=== PATIENT | female | born 1945 | race Caucasian/White ===

== ENCOUNTER 2017-10-16 18:21 | Observation (INO) | payer MEDICARE, MEDICAID ==
[~2017-10-16] VITALS: Ht 157.5 cm; Wt 60.0 kg
[2017-10-16 19:00] VITALS: BP 170/86; PULSE 80; RESP 16; TEMP 99.2; O2SAT 96
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
[2017-10-16] MEDS ORDERED: SODIUM CHLORIDE 0.9% FLUSH 10 ML FLUSH IVF PRN (22:15)
[2017-10-16] MEDS ORDERED: LORazepam 2 MG/ML VIAL IM ONE (22:30)
[2017-10-16 22:59] VITALS: RESP 19; O2SAT 99
[2017-10-16 23:00] VITALS: BP 155/79; PULSE 69; RESP 16; O2SAT 97
[2017-10-16 23:06] LABS: AUTOMATED NEUTROPHIL # 7.6 TH/MM3 (1.8-7.7); BASOPHIL # 0.1 TH/MM3 (0-0.2); BASOPHIL % 0.5 % (0.0-2.0); EOSINOPHIL # 0.2 TH/MM3 (0-0.4); EOSINOPHIL % 1.6 % (0.0-4.0); HEMATOCRIT 29.9 % (35.0-46.0); HEMOGLOBIN 10.3 GM/DL (11.6-15.3); LYMPH % 16.9 % (9.0-44.0); LYMPHOCYTE # 1.8 TH/MM3 (1.0-4.8); MEAN CELL VOLUME 101.5 FL (80.0-100.0); MEAN CORPUSCULAR HEMOGLOBIN 34.8 PG (27.0-34.0); MEAN CORPUSCULAR HGB CONC 34.3 % (32.0-36.0); MEAN PLATELET VOLUME 7.1 FL (7.0-11.0); MONOCYTE # 1.2 TH/MM3 (0-0.9); PLATELET COUNT 296 TH/MM3 (150-450); RED BLOOD COUNT 2.95 MIL/MM3 (4.00-5.30); RED CELL DISTRIBUTION WIDTH 16.5 % (11.6-17.2); WHITE BLOOD COUNT 10.9 TH/MM3 (4.0-11.0)
[2017-10-16 23:29] LABS: ALBUMIN 2.9 GM/DL (3.4-5.0); ALT (GPT) 28 U/L (10-53); AST (GOT) 21 U/L (15-37); BICARBONATE 27.5 MEQ/L (21.0-32.0); BLOOD UREA NITROGEN 40 MG/DL (7-18); CALCIUM 8.4 MG/DL (8.5-10.1); CHLORIDE 105 MEQ/L (98-107); CREATININE 1.88 MG/DL (0.50-1.00); GLOMERULAR FILTRATION RATE 26 ML/MIN (>89); GLUCOSE,RANDOM 284 MG/DL (74-106); SODIUM (NA) 137 MEQ/L (136-145)
[2017-10-16 23:31] LABS: ALKALINE PHOSPHATASE 129 U/L (45-117); TOTAL BILIRUBIN ADULT 0.2 MG/DL (0.2-1.0); TOTAL PROTEIN 6.5 GM/DL (6.4-8.2)
[2017-10-16] MEDS ORDERED: INSULIN HUMAN REGULAR 1,000 UNITS/10 ML VIAL SQ ONE (23:45)
[2017-10-17] VITALS (13 sets, daily range): BP systolic 148–233; BP diastolic 65–96; PULSE 62–69; RESP 16–18; TEMP 96.6–98.2; O2SAT 87–94
[2017-10-17 00:30] LABS: AMORPHOUS SEDIMENT, URINE RARE; BACTERIA, URINE MANY /hpf; BILIRUBIN, URINE NEG (NEG); BLOOD, URINE SMALL (NEG); GLUCOSE,URINE 300 mg/dL (NEG); KETONE, URINE NEG (NEG); NITRITE,URINE NEG (NEG); PH, URINE 5.5 (5.0-8.5); SQUAMOUS EPITHELIAL CELL URINE 97 /hpf (0-5); URINE COLOR LIGHT-YELLOW (YELLW/STRAW); URINE LEUKOCYTE ESTERASE LARGE (NEG); WHITE BLOOD CELL CLUMPS MANY
[2017-10-17] MEDS ORDERED: cefTRIAXone INJ 1,000 MG in SODIUM CHLORIDE 0.9% INJ 100 ML IV ONE (00:45)
[2017-10-17] MEDS ORDERED: NALOXONE HCL 0.4 MG/ML AMP IV PUSH PRN (01:00)
[2017-10-17] MEDS ORDERED: SODIUM CHLORIDE 0.9% FLUSH 10 ML FLUSH IV FLUSH PRN (01:00)
--- NOTE | 2017-10-17 02:07 | RADRPT ---
EXAM DATE/TIME: 10/17/2017 01:43 [place] COMPARISON: No previous studies available for comparison. INDICATIONS : Altered mental status. RADIATION DOSE: 56.35 CTDIvol (mGy) MEDICAL HISTORY : Non-responsive. SURGICAL HISTORY : Non-responsive. ENCOUNTER: Initial ACUITY: 1 day PAIN SCALE: Non-responsive LOCATION: cranial TECHNIQUE: Multiple contiguous axial images were obtained of the head. Using automated exposure control and adj ustment of the mA and/or kV according to patient size, radiation dose was kept as low as reasonably a chievable to obtain optimal diagnostic quality images. DICOM format image data is available electro nically for review and comparison. FINDINGS: CEREBRUM: The ventricles are normal for age. There is bilateral cortical atrophy and chronic white matter reza es bilaterally. No evidence of midline shift, mass lesion, hemorrhage or acute infarction. No extra- axial fluid collections are seen. POSTERIOR FOSSA: The cerebellum and brainstem are intact. The 4th ventricle is midline. The cerebellopontine angle i s unremarkable. EXTRACRANIAL: The visualized portion of the orbits is intact. SKULL: The calvaria is intact. No evidence of skull fracture. CONCLUSION: 1. No acute intracranial hemorrhage. 2. Bilateral cortical atrophy and chronic bilateral white matter changes. Fernando Rubi MD on October 17, 2017 at 2:04 Board Certified Radiologist. This report was verified electronically.
--- NOTE | 2017-10-17 07:49 | HHI.HP ---
[facility] Duran Rodrigues MD Admission Diagnosis AMS, UTI, Hyperglycemia Diagnoses: Chief Complaint: refusing insulin, agitation Travel History International Travel<30 Days: No Contact w/Intl Traveler <30 Da: No Traveled to Known Affected Are: No History of Present Illness Written by Vaishali Younger, acting as scribe for Dr. Hlae on 10/17/17 at 07: 48. 72-year-old female with history of diabetes and hypertension presents after being sent from [facility] under [facility] Act secondary to refusing insulin and becoming aggressive with staff. The patient is currently seen in the ED, slightly sedated after receiving IM Ativan last night. She is drowsy but oriented to person and hospital. She is unclear of the events leading up to her admission last night. She then admits that the facility was claiming that she was refusing her insulin however she denies this. Reports indicate that her blood glucose was 423 and she continued to refuse treatment. ER note also reports that the patient was aggressive with staff. She currently denies any medical complaints including no fevers/chills, headache, lightheadedness, dizziness, chest pain, shortness of breath, or abdominal complaints. She also denies any urinary complaints including no dysuria or suprapubic pain. Review of Systems Except as stated in HPI: all other systems reviewed are Neg Past Family Social History Past Medical History Diabetes Hypertension Past Surgical History Hysterectomy Tonsillectomy Reported Medications Unknown at this time, RN to update med list Allergies: Coded Allergies: No Allergy Information Available (Unverified , 10/16/17) Active Ordered Medications Current Medications Medications (Trade) Dose Ordered Sig/Gómez Route Start Time Stop Time Status Last Admin (NS Flush) 2 ml UNSCH PRN IV FLUSH 10/17/17 01:00 (NS Flush) 2 ml BID IV FLUSH 10/17/17 09:00 (Narcan Inj) 0.4 mg UNSCH PRN IV PUSH 10/17/17 01:00 Ceftriaxone Sodium 1000 mg/ Sodium Chloride 100 ml @ 200 mls/hr Q24H IV 10/18/17 01:00 Family History Denies any significant family medical history Social History Smokes tobacco 1/2 PPD Denies any alcohol or illicit drug use Physical Exam Vital Signs Vital Signs Date Time Temp Pulse Resp B/P (MAP) Pulse Ox O2 Delivery O2 Flow Rate FiO2 10/17/17 03:00 66 16 148/74 (98) 94 Room Air 10/16/17 23:00 69 16 155/79 (104) 97 Room Air 10/16/17 22:59 19 99 Room Air 10/16/17 19:00 99.2 80 16 170/86 (114) 96 Room Air Physical Exam GENERAL: Well-nourished, well-developed elderly female patient in NAD. Drowsy. SKIN: Warm and dry. No rash. HEAD: Normocephalic. Atraumatic. EYES: Pupils equal and round. No scleral icterus. No injection or drainage. ENT: No nasal bleeding or discharge. Mucous membranes slightly dry. NECK: Supple. Trachea midline. CARDIOVASCULAR: Regular rate and rhythm. S1, S2 noted. No murmur appreciated. RESPIRATORY: No accessory muscle use. Clear to auscultation. Breath sounds equal bilaterally. GASTROINTESTINAL: Abdomen soft, non-tender, nondistended. Normoactive bowel sounds x4. MUSCULOSKELETAL: No obvious deformities. Extremities without clubbing, cyanosis , or edema. NEUROLOGICAL: Awake and alert. No obvious cranial nerve deficits. Motor grossly within normal limits. Moves all extremities spontaneously. Normal speech. Laboratory Laboratory Tests Test 10/16/17 22:55 10/17/17 00:05 White Blood Count 10.9 Red Blood Count 2.95 Hemoglobin 10.3 Hematocrit 29.9 Mean Corpuscular Volume 101.5 Mean Corpuscular Hemoglobin 34.8 Mean Corpuscular Hemoglobin Concent 34.3 Red Cell Distribution Width 16.5 Platelet Count 296 Mean Platelet Volume 7.1 Neutrophils (%) (Auto) 70.0 Lymphocytes (%) (Auto) 16.9 Monocytes (%) (Auto) 11.0 Eosinophils (%) (Auto) 1.6 Basophils (%) (Auto) 0.5 Neutrophils # (Auto) 7.6 Lymphocytes # (Auto) 1.8 Monocytes # (Auto) 1.2 Eosinophils # (Auto) 0.2 Basophils # (Auto) 0.1 CBC Comment DIFF FINAL Differential Comment Blood Urea Nitrogen 40 Creatinine 1.88 Random Glucose 284 Total Protein 6.5 Albumin 2.9 Calcium Level 8.4 Alkaline Phosphatase 129 Aspartate Amino Transf (AST/SGOT) 21 Alanine Aminotransferase (ALT/SGPT) 28 Total Bilirubin 0.2 Sodium Level 137 Potassium Level 4.6 Chloride Level 105 Carbon Dioxide Level 27.5 Anion Gap 5 Estimat Glomerular Filtration Rate 26 B-Hydroxybutyrate 0.32 Urine Color LIGHT-YELLOW Urine Turbidity CLOUDY Urine pH 5.5 Urine Specific [place] 1.016 Urine Protein 300 Urine Glucose (UA) 300 Urine Ketones NEG Urine Occult Blood SMALL Urine Nitrite NEG Urine Bilirubin NEG Urine Urobilinogen LESS THAN 2.0 Urine Leukocyte Esterase LARGE Urine RBC 4 Urine WBC Urine WBC Clumps MANY Urine Squamous Epithelial Cells 97 Urine Amorphous Sediment RARE Urine Bacteria MANY Microscopic Urinalysis Comment CATH-CULTURE IND Date/Time Source Procedure Growth Status 10/17/17 00:05 Urine Catheterized Urine Urine Culture Pending Received Result Diagram: 10/16/17 2255 10/16/17 2255 Imaging Last Impressions Head CT 10/17/17 0000 Signed Impressions: Service Date/Time: Tuesday, October 17, 2017 01:43 - CONCLUSION: 1. No acute intracranial hemorrhage. 2. Bilateral cortical atrophy and chronic bilateral white matter changes. Fernando Rubi MD Caprini VTE Risk Assessment Caprini VTE Risk Assessment: Mod/High Risk (score >= 2) Caprini Risk Assessment Model Point Value = 1 Point Value = 2 Point Value = 3 Point Value = 5 Age 41-60 Minor surgery BMI > 25 kg/m2 Swollen legs Varicose veins or History of unexplained or recurrent spontaneous Oral contraceptives or hormone replacement Sepsis (< 1 month) Serious lung disease, including pneumonia (< 1 month) Abnormal pulmonary function Acute myocardial infarction Congestive heart failure (< 1 month) History of inflammatory bowel disease Medical patient at bed rest Age 61-74 Arthroscopic surgery Major open surgery (> 45 min) Laparoscopic surgery (> 45 min) Malignancy Confined to bed (> 72 hours) Immobilizing plaster cast Central venous access Age >= 75 History of VTE Family history of VTE Factor V Leiden Prothrombin [id number] Lupus anticoagulant Anticardiolipin antibodies Elevated serum homocysteine Heparin-induced thrombocytopenia Other congenital or acquired thrombophilia Stroke (< 1 month) Elective arthroplasty Hip, pelvis, or leg fracture Acute spinal cord injury (< 1 month) Prophylaxis Regimen Total Risk Factor Score Risk Level Prophylaxis Regimen 0-1 Low Early ambulation 2 Moderate Order ONE of the following: *Sequential Compression Device (SCD) *Heparin 5000 units SQ BID 3-4 Higher Order ONE of the following medications: *Heparin 5000 units SQ TID *Enoxaparin/Lovenox 40 mg SQ daily (WT < 150 kg, CrCl > 30 mL/min) *Enoxaparin/Lovenox 30 mg SQ daily (WT < 150 kg, CrCl > 10-29 mL/min) *Enoxaparin/Lovenox 30 mg SQ BID (WT < 150 kg, CrCl > 30 mL/min) AND/OR *Sequential Compression Device (SCD) 5 or more Highest Order ONE of the following medications: *Heparin 5000 units SQ TID (Preferred with Epidurals) *Enoxaparin/Lovenox 40 mg SQ daily (WT < 150 kg, CrCl > 30 mL/min) *Enoxaparin/Lovenox 30 mg SQ daily (WT < 150 kg, CrCl > 10-29 mL/min) *Enoxaparin/Lovenox 30 mg SQ BID (WT < 150 kg, CrCl > 30 mL/min) AND *Sequential Compression Device (SCD) Assessment and Plan Problem List: (1) Altered mental status ICD Code: R41.82 - Altered mental status, unspecified Status: Acute (2) UTI (urinary tract infection) ICD Code: N39.0 - Urinary tract infection, site not specified Status: Acute (3) Hyperglycemia ICD Code: R73.9 - Hyperglycemia, unspecified Status: Acute Assessment and Plan 72-year-old female with history of diabetes and hypertension presents after being sent from [facility] under [employer] Act secondary to refusing insulin and becoming aggressive with staff. Encephalopathy with Agitation/Refusing Meds: sent under [facility] Act from SNF. Possibly secondary to UTI vs hyperglycemia. -Head CT images reviewed, no acute findings -treat UTI -control blood sugars -consult psychiatry UTI: suspect contributing to above symptoms. UA with large leuks, many WBCs/ bacteria. -Continue on IV Rocephin -Monitor urine culture SCOTT: suspect secondary to dehydration. Cr 1.88, previously 1.3 in 2008. -give IVF with NS at 75cc/hr -avoid nephrotoxins -repeat BMP in am Diabetes Mellitus: BG 284 upon arrival -RN to update home medications -Monitor Accu-checks and cover with SSI for now -Diabetic diet Hypertension: BP 170/86 upon arrival. -will restart home meds once med list updated -Clonidine prn SBP > 180 -Monitor BP, add antihypertensives as needed DVT Prophylaxis: Heparin sq the above note was scribed by Ms. Vaishali Younger ( ALISHA). I attest that I had a [id number] encounter with the patient and personally performed the history and physical exam and medical decision making and reviewed the findings and the plan with the patient. Problem Qualifiers (1) Altered mental status: Qualified Codes: R41.82 - Altered mental status, unspecified (2) UTI (urinary tract infection): Qualified Codes: N39.0 - Urinary tract infection, site not specified; R31.9 - Hematuria, unspecified Vaishali Younger PA-C Oct 17, 2017 07:49 Veronica Hale MD Oct 17, 2017 10:02
[2017-10-17] MEDS ORDERED: DEXTROSE 50% IN WATER 50 ML VIAL(D50) IV PUSH PRN (08:45)
[2017-10-17] MEDS ORDERED: GLUCAGON 1 MG/ML VIAL OTHER PRN (08:45)
[2017-10-17] MEDS: SODIUM CHLORIDE 0.9% FLUSH 10 ML FLUSH IV FLUSH SCH ×2 (09:00→21:00)
[2017-10-17] MEDS: SODIUM CHLOR 0.9% 1000 ML INJ 1,000 ML IV SCH ×2 (09:44→21:20)
[2017-10-17] MEDS: cloNIDine HCL 0.1 MG TAB PO PRN ×2 (11:54→17:23)
[2017-10-17] MEDS: INSULIN ASPART SUPPLEMENTAL SCALE SQ SCH ×3 (12:01→23:44)
[2017-10-17] MEDS ORDERED: FERR325T18 PO (12:14)
[2017-10-17] MEDS ORDERED: MAPA325T PO (12:14)
[2017-10-17] MEDS ORDERED: LISI-515 PO (12:14)
[2017-10-17] MEDS ORDERED: CELE40TA PO (12:14)
[2017-10-17] MEDS ORDERED: OXYB5TAB8 PO (12:14)
[2017-10-17] MEDS ORDERED: ASPI81TA23 PO (12:14)
[2017-10-17] MEDS ORDERED: HYDR1OIN6 (12:14)
[2017-10-17] MEDS ORDERED: CLOP75TA PO (12:14)
[2017-10-17] MEDS ORDERED: NOVOINJ3 SQ (12:14)
[2017-10-17] MEDS ORDERED: ROSU1TAB6 PO (12:14)
[2017-10-17] MEDS ORDERED: PRED1 PO (12:14)
[2017-10-17] MEDS ORDERED: OXCA150T PO (12:14)
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
[2017-10-17] MEDS: LISINOPRIL 20 MG TAB PO SCH (14:45)
[2017-10-17] MEDS: OXYBUTYNIN CHLORIDE 5 MG TAB PO SCH (22:59)
[2017-10-17] MEDS: HEPARIN SODIUM - SQ 10,000 UNITS/ML VIAL SQ SCH (23:00)
[2017-10-17] MEDS: ATORVASTATIN 20 MG TAB PO SCH (23:00)
[2017-10-17] MEDS: OXcarbazepine 150 MG TAB PO SCH (23:00)
[2017-10-18] MEDS: cefTRIAXone INJ 1,000 MG in SODIUM CHLORIDE 0.9% INJ 100 ML IV SCH (01:58)
[2017-10-18 02:59] VITALS: BP 186/79; PULSE 55; RESP 17; TEMP 98.2; O2SAT 93
[2017-10-18 07:15] LABS: AUTOMATED NEUTROPHIL # 6.9 TH/MM3 (1.8-7.7); BASOPHIL # 0.1 TH/MM3 (0-0.2); BASOPHIL % 1.1 % (0.0-2.0); EOSINOPHIL # 0.2 TH/MM3 (0-0.4); EOSINOPHIL % 2.2 % (0.0-4.0); HEMOGLOBIN 9.6 GM/DL (11.6-15.3); LYMPH % 21.5 % (9.0-44.0); LYMPHOCYTE # 2.4 TH/MM3 (1.0-4.8); MEAN CELL VOLUME 101.3 FL (80.0-100.0); MEAN CORPUSCULAR HEMOGLOBIN 34.9 PG (27.0-34.0); MEAN CORPUSCULAR HGB CONC 34.4 % (32.0-36.0); MEAN PLATELET VOLUME 7.3 FL (7.0-11.0); MONO % 12.4 % (0.0-8.0); MONOCYTE # 1.4 TH/MM3 (0-0.9); NEUT % 62.8 % (16.0-70.0); PLATELET COUNT 264 TH/MM3 (150-450); RED BLOOD COUNT 2.77 MIL/MM3 (4.00-5.30); RED CELL DISTRIBUTION WIDTH 16.9 % (11.6-17.2)
[2017-10-18 07:44] LABS: BICARBONATE 23.3 MEQ/L (21.0-32.0); CALCIUM 8.1 MG/DL (8.5-10.1); CREATININE 1.64 MG/DL (0.50-1.00)
[2017-10-18 08:07] VITALS: BP 205/84; PULSE 61; RESP 22; TEMP 97.6; O2SAT 95
[2017-10-18] MEDS: FERROUS SULFATE 325 MG (65 MG ELEMENTAL IRON) TAB PO SCH (08:55)
[2017-10-18] MEDS: HEPARIN SODIUM - SQ 10,000 UNITS/ML VIAL SQ SCH ×2 (08:55→23:07)
[2017-10-18] MEDS: ASPIRIN EC 81 MG TABEC PO SCH (08:56)
[2017-10-18] MEDS: LISINOPRIL 20 MG TAB PO SCH (08:56)
[2017-10-18] MEDS: CLOPIDOGREL 75 MG TAB PO SCH (08:57)
[2017-10-18] MEDS: OXcarbazepine 150 MG TAB PO SCH ×2 (08:57→23:06)
[2017-10-18] MEDS: OXYBUTYNIN CHLORIDE 5 MG TAB PO SCH ×2 (08:57→23:06)
[2017-10-18] MEDS: predniSONE 1 MG TAB PO SCH (08:58)
[2017-10-18] MEDS: SODIUM CHLORIDE 0.9% FLUSH 10 ML FLUSH IV FLUSH SCH ×2 (08:58→23:07)
[2017-10-18] MEDS: INSULIN ASPART SUPPLEMENTAL SCALE SQ SCH ×4 (10:32→23:07)
[2017-10-18] MEDS: ACETAMINOPHEN 325 MG TAB PO PRN (10:34)
[2017-10-18 12:10] VITALS: BP 188/82; PULSE 66; RESP 22; TEMP 98.2; O2SAT 92
--- NOTE | 2017-10-18 12:28 | HHI.PR ---
Subjective Remarks in no acute distress. denies chest pain or sob. BP and blood sugar trend noted. Objective Vitals Vital Signs Date Time Temp Pulse Resp B/P (MAP) Pulse Ox O2 Delivery O2 Flow Rate FiO2 10/18/17 12:10 98.2 66 22 188/82 (117) 92 10/18/17 08:07 97.6 61 22 205/84 (124) 95 10/18/17 02:59 98.2 55 17 186/79 (114) 93 10/17/17 23:47 98.2 65 18 168/70 (102) 94 10/17/17 20:49 98.0 62 17 156/70 (98) 94 10/17/17 18:07 160/65 (96) 10/17/17 17:23 210/88 (128) 10/17/17 17:15 217/86 (129) 10/17/17 17:14 206/81 (122) 10/17/17 16:43 96.6 63 18 92 10/17/17 14:46 10/17/17 14:10 69 18 170/70 (103) 93 Room Air 10/17/17 13:56 68 18 197/96 (129) 93 Room Air 10/17/17 12:41 67 18 225/91 (135) 93 Room Air I/O 10/17/17 10/17/17 10/17/17 10/18/17 10/18/17 10/18/17 07:00 15:00 23:00 07:00 15:00 23:00 Intake Total 240 ml 200 ml Balance 240 ml 200 ml Intake Oral 240 ml 200 ml # Voids 3 1 Result Diagram: 10/18/17 0613 10/18/17 0613 Imaging Last Impressions Head CT 10/17/17 0000 Signed Impressions: Service Date/Time: Tuesday, October 17, 2017 01:43 - CONCLUSION: 1. No acute intracranial hemorrhage. 2. Bilateral cortical atrophy and chronic bilateral white matter changes. Fernando Rubi MD Objective Remarks GENERAL: This is a well-nourished, well-developed patient, in no apparent distress. CARDIOVASCULAR: Regular rate and regular rhythm without murmurs, gallops, or rubs. RESPIRATORY: Clear to auscultation. Breath sounds equal bilaterally. No wheezes , rales, or rhonchi. GASTROINTESTINAL: Abdomen soft, non-tender, nondistended. Normal, active bowel sounds MUSCULOSKELETAL: Extremities without clubbing, cyanosis, or edema. NEURO: awake and alert. Medications and IVs Inpatient Medications Acetaminophen (Tylenol) 650 mg Q4H PRN PO HEADACHE/ PAIN/ FEVER Last administered on 10/18/17at 10:34; Start 10/17/17 at 13:00 Aspirin (Ecotrin Ec) 81 mg DAILY PO Last administered on 10/18/17at 08:56; Start 10/18/17 at 09:00 Atorvastatin Calcium (Lipitor) 20 mg HS PO Last administered on 10/17/17at 23:00 ; Start 10/17/17 at 21:00 Ceftriaxone Sodium 1000 mg/ Sodium Chloride 100 ml @ 200 mls/hr Q24H IV Last administered on 10/18/17at 01:58; Start 10/18/17 at 01:00 Clonidine (Catapres) 0.1 mg Q6H PRN PO SBP> OR = 180, DBP> OR = 100 Last administered on 10/17/17at 17:23; Start 10/17/17 at 08:45 Clopidogrel Bisulfate (Plavix) 75 mg DAILY PO Last administered on 10/18/17at 08 :57; Start 10/18/17 at 09:00 Dextrose (D50w (Vial) Inj) 50 ml UNSCH PRN IV PUSH HYPOGLYCEMIA-SEE COMMENTS; Start 10/17/17 at 08:45 Ferrous Sulfate (Ferrous Sulfate) 325 mg DAILY PO Last administered on at 08:55; Start 10/18/17 at 09:00 Glucagon (Glucagon Inj) 1 mg UNSCH PRN OTHER HYPOGLYCEMIA-SEE COMMENTS; Start 10/17/17 at 08:45 Heparin Sodium (Porcine) (Heparin Inj) 5,000 units Q12HR SQ Last administered on 10/18/17at 08:55; Start 10/17/17 at 21:00 Insulin Aspart (NovoLOG SUPPLEMENTAL SCALE) 1 ACHS SLIDING SCALE SQ Last administered on 10/18/17at 10:32; Start 10/17/17 at 12:00 Insulin Human Regular (NovoLIN R INJ) 6 units ONCE ONCE SQ Last administered on 10/17/17at 01:08; Start 10/16/17 at 23:45; Stop 10/16/17 at 23:46; Status DC Lisinopril (Prinivil) 20 mg DAILY PO Last administered on 10/18/17at 08:56; Start 10/17/17 at 14:30 Lorazepam (Ativan Inj) 1 mg ONCE ONCE IM Last administered on 10/16/17at 22:59 ; Start 10/16/17 at 22:30; Stop 10/16/17 at 22:31; Status DC Naloxone HCl (Narcan Inj) 0.4 mg UNSCH PRN IV PUSH SEE LABEL COMMENTS; Start at 01:00 Oxcarbazepine (Trileptal) 150 mg BID PO Last administered on 10/18/17 08:57; Start 10/17/17 at 21:00 Oxybutynin Chloride (Ditropan) 5 mg Q12HR PO Last administered on 10/18/17 08: 57; Start 10/17/17 at 21:00 Prednisone (Deltasone) 1 mg DAILY PO Last administered on 10/18/17at 08:58; Start 10/18/17 at 09:00 Sodium Chloride 1,000 ml @ 75 mls/hr [id number] IV Last administered on at 21:20; Start 10/17/17 at 08:00 Sodium Chloride (NS Flush) 2 ml BID IV FLUSH Last administered on 10/18/17at 08: 58; Start 10/17/17 at 09:00 A/P Problem List: (1) Altered mental status ICD Code: R41.82 - Altered mental status, unspecified Status: Acute (2) UTI (urinary tract infection) ICD Code: N39.0 - Urinary tract infection, site not specified Status: Acute (3) Hyperglycemia ICD Code: R73.9 - Hyperglycemia, unspecified Status: Acute Assessment and Plan Encephalopathy with Agitation/Refusing Meds: . Possibly secondary to UTI vs hyperglycemia. -Head CT images reviewed, no acute findings -treat UTI- follow the UC. -control blood sugars -psych consult appreciated; holder act was lifted- cleared from psych. UTI: suspect contributing to above symptoms. -Continue on IV Rocephin -Monitor urine culture SCOTT: suspect secondary to dehydration. improved on IV fluid. -repeat BMP in am Diabetes Mellitus: BG 284 upon arrival -will start on Levemir ( she says that she's taking lantus at home). -Monitor Accu-checks and cover with SSI for now -Diabetic diet Hypertension:uncontrolled. -continue lisinopril. -will add procardia-XL -Monitor BP,will adjust the regimen as needed. DVT Prophylaxis: Heparin sq Discharge Planning possible discharge tomorrow if BP is better controlled. Problem Qualifiers (1) Altered mental status: Qualified Codes: R41.82 - Altered mental status, unspecified (2) UTI (urinary tract infection): Qualified Codes: N39.0 - Urinary tract infection, site not specified; R31.9 - Hematuria, unspecified Veronica Hale MD Oct 18, 2017 12:28
[2017-10-18] MEDS ORDERED: INSULIN DETEMIR 100 UNITS/ML VIAL SQ SCH (12:30)
[2017-10-18] MEDS ORDERED: NIFEdipine 30 MG SUSTAINED RELEASE TAB PO ONE (12:30)
[2017-10-18] MEDS ORDERED: LANTUS2P SQ (12:31)
[2017-10-18] MEDS: SODIUM CHLOR 0.9% 1000 ML INJ 1,000 ML IV SCH (12:32)
[2017-10-18 15:47] VITALS: BP 147/67; PULSE 62; RESP 20; TEMP 98.4; O2SAT 94
[2017-10-18] MEDS: ATORVASTATIN 20 MG TAB PO SCH (23:06)
[2017-10-19 01:06] VITALS: BP 144/88; PULSE 74; RESP 18; TEMP 98.1; O2SAT 96
[2017-10-19] MEDS: cefTRIAXone INJ 1,000 MG in SODIUM CHLORIDE 0.9% INJ 100 ML IV SCH (01:35)
[2017-10-19] MEDS: ACETAMINOPHEN 325 MG TAB PO PRN ×2 (01:36→10:26)
[2017-10-19 02:28] VITALS: PULSE 60
[2017-10-19 04:56] VITALS: BP 170/84; PULSE 64; RESP 18; TEMP 98.7; O2SAT 97
[2017-10-19] MEDS: INSULIN ASPART SUPPLEMENTAL SCALE SQ SCH ×3 (08:00→18:40)
[2017-10-19 08:09] VITALS: BP 183/96; PULSE 64; RESP 18; TEMP 98; O2SAT 92
[2017-10-19 08:57] LABS: HEMOGLOBIN A1C 8.9 % (4.3-6.0)
[2017-10-19] MEDS ORDERED: NIFEdipine 30 MG SUSTAINED RELEASE TAB PO SCH (09:00)
[2017-10-19] MEDS: SODIUM CHLORIDE 0.9% FLUSH 10 ML FLUSH IV FLUSH SCH (09:00)
[2017-10-19 09:15] LABS: BICARBONATE 27.1 MEQ/L (21.0-32.0); CALCIUM 8.7 MG/DL (8.5-10.1); CREATININE 1.61 MG/DL (0.50-1.00)
[2017-10-19] MEDS: OXcarbazepine 150 MG TAB PO SCH (10:22)
[2017-10-19] MEDS: OXYBUTYNIN CHLORIDE 5 MG TAB PO SCH (10:23)
[2017-10-19] MEDS: ASPIRIN EC 81 MG TABEC PO SCH (10:23)
[2017-10-19] MEDS: FERROUS SULFATE 325 MG (65 MG ELEMENTAL IRON) TAB PO SCH (10:23)
[2017-10-19] MEDS: CLOPIDOGREL 75 MG TAB PO SCH (10:24)
[2017-10-19] MEDS: predniSONE 1 MG TAB PO SCH (10:25)
[2017-10-19] MEDS: LISINOPRIL 20 MG TAB PO SCH (10:25)
[2017-10-19 11:49] VITALS: BP 182/77; PULSE 60; RESP 20; TEMP 97.6; O2SAT 93
--- NOTE | 2017-10-19 13:22 | HHI.PR ---
Subjective Remarks In bed says she feels tired and sleepy. Not eating much, some nausea but did not vomit. No diarrhea or constipation. Denies fever has chills. No cp, sob,. palpitations. Objective Vitals Vital Signs Date Time Temp Pulse Resp B/P (MAP) Pulse Ox O2 Delivery O2 Flow Rate FiO2 10/19/17 11:49 97.6 60 20 182/77 (112) 93 10/19/17 08:09 98.0 64 18 183/96 (125) 92 10/19/17 04:56 98.7 64 18 170/84 (112) 97 10/19/17 02:28 60 10/19/17 01:06 98.1 74 18 144/88 (106) 96 10/18/17 15:47 98.4 62 20 147/67 (93) 94 I/O 10/18/17 10/18/17 10/18/17 10/19/17 10/19/17 10/19/17 07:00 15:00 23:00 07:00 15:00 23:00 Intake Total 200 ml 100 ml Balance 200 ml 100 ml Intake Oral 200 ml IV Total 100 ml Result Diagram: 10/18/17 0613 10/19/17 0729 Imaging Last Impressions Head CT 10/17/17 0000 Signed Impressions: Service Date/Time: Tuesday, October 17, 2017 01:43 - CONCLUSION: 1. No acute intracranial hemorrhage. 2. Bilateral cortical atrophy and chronic bilateral white matter changes. Fernando Rubi MD Objective Remarks GENERAL: This is a well-nourished, well-developed patient, in no apparent distress. CARDIOVASCULAR: Regular rate and regular rhythm without murmurs, gallops, or rubs. RESPIRATORY: Clear to auscultation. Breath sounds equal bilaterally. No wheezes , rales, or rhonchi. GASTROINTESTINAL: Abdomen soft, non-tender, nondistended. Normal, active bowel sounds MUSCULOSKELETAL: Extremities without clubbing, cyanosis, or edema. NEURO: awake and alert. A/P Problem List: (1) Altered mental status ICD Code: R41.82 - Altered mental status, unspecified Status: Acute (2) UTI (urinary tract infection) ICD Code: N39.0 - Urinary tract infection, site not specified Status: Acute (3) Hyperglycemia ICD Code: R73.9 - Hyperglycemia, unspecified Status: Acute Assessment and Plan Encephalopathy with Agitation/Refusing Meds: Possibly secondary to UTI vs hyperglycemia. -Head CT images reviewed, no acute findings -treat UTI E coli, change rocephin to ceftin 250 bid x 5 more days -control blood sugars -psych consult appreciated; holder act was lifted- cleared from psych. UTI: suspect contributing to above symptoms. -Continue on IV Rocephin -Monitor urine culture SCOTT: suspect secondary to dehydration. improved on IV fluid. -repeat BMP in am Diabetes Mellitus: BG 284 upon arrival -will start on Levemir ( she says that she's taking lantus at home). -Monitor Accu-checks and cover with SSI for now -Diabetic diet Hypertension:uncontrolled. -continue lisinopril. -will add procardia-XL -Monitor BP,will adjust the regimen as needed. DVT Prophylaxis: Heparin sq Discharge Planning Poss DC later today if BP better controlled. increased Procardia to 60 mg po daily Problem Qualifiers (1) Altered mental status: Qualified Codes: R41.82 - Altered mental status, unspecified (2) UTI (urinary tract infection): Qualified Codes: N39.0 - Urinary tract infection, site not specified; R31.9 - Hematuria, unspecified Lakia Alfaro MD Oct 19, 2017 13:21
--- NOTE | 2017-10-19 13:37 | HHI.DS ---
Discharge Summary Admission Date Oct 17, 2017 at 01:09 Discharge Date: Oct 19, 2017 Admitting Diagnosis AMS, UTI, Hyperglycemia (1) Altered mental status ICD Code: R41.82 - Altered mental status, unspecified Status: Acute (2) UTI (urinary tract infection) ICD Code: N39.0 - Urinary tract infection, site not specified Status: Acute (3) Hyperglycemia ICD Code: R73.9 - Hyperglycemia, unspecified Status: Acute Procedures none Brief History - From Admission Written by Vaishali Yougner, acting as scribe for Dr. Hale on 10/17/17 at 07: 48. 72-year-old female with history of diabetes and hypertension presents after being sent from [facility] under Asher Act secondary to refusing insulin and becoming aggressive with staff. The patient is currently seen in the ED, slightly sedated after receiving IM Ativan last night. She is drowsy but oriented to person and hospital. She is unclear of the events leading up to her admission last night. She then admits that the facility was claiming that she was refusing her insulin however she denies this. Reports indicate that her blood glucose was 423 and she continued to refuse treatment. ER note also reports that the patient was aggressive with staff. She currently denies any medical complaints including no fevers/chills, headache, lightheadedness, dizziness, chest pain, shortness of breath, or abdominal complaints. She also denies any urinary complaints including no dysuria or suprapubic pain. CBC/BMP: 10/18/17 0613 10/19/17 0729 Significant Findings Laboratory Tests Test 10/16/17 22:55 10/17/17 00:05 10/18/17 06:13 10/19/17 07:29 Red Blood Count 2.95 MIL/MM3 (4.00-5.30) 2.77 MIL/MM3 (4.00-5.30) Hemoglobin 10.3 GM/DL (11.6-15.3) 9.6 GM/DL (11.6-15.3) Hematocrit 29.9 % (35.0-46.0) 28.0 % (35.0-46.0) Mean Corpuscular Volume 101.5 FL (80.0-100.0) 101.3 FL (80.0-100.0) Mean Corpuscular Hemoglobin 34.8 PG (27.0-34.0) 34.9 PG (27.0-34.0) Monocytes (%) (Auto) 11.0 % (0.0-8.0) 12.4 % (0.0-8.0) Monocytes # (Auto) 1.2 TH/MM3 (0-0.9) 1.4 TH/MM3 (0-0.9) Blood Urea Nitrogen 40 MG/DL (7-18) 38 MG/DL (7-18) 31 MG/DL (7-18) Creatinine 1.88 MG/DL (0.50-1.00) 1.64 MG/DL (0.50-1.00) 1.61 MG/DL (0.50-1.00) Random Glucose 284 MG/DL (74-106) 205 MG/DL (74-106) Albumin 2.9 GM/DL (3.4-5.0) Calcium Level 8.4 MG/DL (8.5-10.1) 8.1 MG/DL (8.5-10.1) Alkaline Phosphatase 129 U/L (45-117) Estimat Glomerular Filtration Rate 26 ML/MIN (>89) 31 ML/MIN (>89) 32 ML/MIN (>89) Urine Turbidity CLOUDY (CLEAR) Urine Protein 300 mg/dL (NEG-TRACE) Urine Glucose (UA) 300 mg/dL (NEG) Urine Occult Blood SMALL (NEG) Urine Leukocyte Esterase LARGE (NEG) Urine RBC 4 /hpf (0-3) Urine WBC Clumps MANY (NONE) Urine Bacteria MANY /hpf (NONE) Hemoglobin A1c 8.9 % (4.3-6.0) Imaging Last Impressions Head CT 10/17/17 0000 Signed Impressions: Service Date/Time: Tuesday, October 17, 2017 01:43 - CONCLUSION: 1. No acute intracranial hemorrhage. 2. Bilateral cortical atrophy and chronic bilateral white matter changes. Fernando Rubi MD PE at Discharge GENERAL: This is a well-nourished, well-developed patient, in no apparent distress. CARDIOVASCULAR: Regular rate and regular rhythm without murmurs, gallops, or rubs. RESPIRATORY: Clear to auscultation. Breath sounds equal bilaterally. No wheezes , rales, or rhonchi. GASTROINTESTINAL: Abdomen soft, non-tender, nondistended. Normal, active bowel sounds MUSCULOSKELETAL: Extremities without clubbing, cyanosis, or edema. NEURO: awake and alert. Hospital Course Encephalopathy with Agitation/Refusing Meds: Possibly secondary to UTI vs hyperglycemia. Improved, back at her baseline. -Head CT images reviewed, no acute findings -treat UTI E coli, change rocephin to ceftin 250 bid x 5 more days -control blood sugars -psych consult appreciated; asher act was lifted- cleared from psych. UTI: suspect contributing to above symptoms. -Continue on IV Rocephin -Monitor urine culture SCOTT: suspect secondary to dehydration. improved on IV fluid. -repeat BMP in am Diabetes Mellitus: BG 284 upon arrival -will start on Levemir ( she says that she's taking lantus at home). -Monitor Accu-checks and cover with SSI for now -Diabetic diet Hypertension:uncontrolled. -continue lisinopril. -will add procardia-XL -Monitor BP,will adjust the regimen as needed. DVT Prophylaxis: Heparin sq Improved discharged to SNF in stable condition to follow up as OP with PCP and consultants. Pt Condition on Discharge: Stable Discharge Disposition: Discharge Home Discharge Time: > 30 minutes Discharge Instructions DIET: Follow Instructions for: Heart Healthy Diet, Diabetic Diet Activities you can perform: Regular-No Restrictions Follow up Referrals: PCP Follow-up - 1 Week with Duran Rodrigues MD New Medications: Cefuroxime (Ceftin) 250 Mg Tab 250 MG PO BID for UTI, #10 TAB Nifedipine ER 24 HR (Procardia XL) 60 Mg Tab 60 MG PO DAILY for Blood Pressure Management, #30 TAB 0 Refills Insulin Detemir Inj (Levemir Inj) 1,000 unit/ 10 ML Vial 10 UNITS SQ HS for diabetes, #30 INJECTION Do not mix with any other Insulin. Continued Medications: Acetaminophen (Mapap) 325 Mg Tab 650 MG PO Q4-6H PRN for PAIN SCALE 1 TO 10, TAB [address] (Aspirin EC) 81 Mg Tabdr 81 MG PO DAILY, TAB 0 Refills Citalopram (Celexa) 40 Mg Tab 40 MG PO DAILY for Control Depression, #30 TAB 0 Refills Clopidogrel (Clopidogrel) 75 Mg Tab 75 MG PO DAILY for Blood Clot Prevention, #30 TAB 0 Refills Ferrous Sulfate (Ferrous Sulfate) 325 Mg (65 Mg Iron) Tablet 325 MG PO DAILY for Nutritional Supplement, #30 TAB 0 Refills Hydrocortisone Acetate (Hydrocortisone) 1 % Oint...g. 2.5 Insulin Aspart Inj (Novolog Flexpen Inj) 300 Unit/3 Ml Pen 1 UNITS SQ for Blood Sugar Management, #1 PEN 0 Refills Lisinopril (Lisinopril) 20 Mg Tab 20 MG PO DAILY, #30 TAB 0 Refills Oxcarbazepine (Oxcarbazepine) 150 Mg Tab 150 MG PO BID for Seizure Control, #60 TAB 0 Refills Oxybutynin (Ditropan) 5 Mg Tab 5 MG PO Q12HR for Urinary Symptom Managemen, #60 TAB 0 Refills Prednisone (Prednisone) 1 Mg Tab 1 MG PO DAILY, TAB 0 Refills Rosuvastatin (Rosuvastatin) 10 Mg Tab 10 MG PO HS for Cholesterol Management, TAB 0 Refills Discontinued Medications: Insulin Glargine Inj (Lantus Inj) 1,000 Unit/10 Ml Vial 20 UNITS SQ HS for Blood Sugar Management for 30 Days, VIAL 0 Refills Lakia Alfaro MD Oct 19, 2017 13:37
[2017-10-19] MEDS ORDERED: NIFE1TAB86 PO (13:39)
[2017-10-19] MEDS ORDERED: CEFU1TAB18 PO (13:39)
[2017-10-19] MEDS ORDERED: LEVEMIR SQ (13:39)
--- NOTE | 2017-10-19 13:39 | HHI.DCPOC ---
Discharge Care Plan Diagnosis: (1) UTI (urinary tract infection) (2) Altered mental status (3) Hyperglycemia Your Health Problems Are: Fluctuating Blood Sugars Goals to Promote Your Health * To prevent worsening of your condition and complications * To maintain your health at the optimal level Directions to Meet Your Goals Take your medications as prescribed Follow your dietary instruction Follow activity as directed Keep your appointments as scheduled Take your immunizations and boosters as scheduled If your symptoms worsen call your PCP, if no PCP go to Urgent Care Center or Emergency Room Smoking is Dangerous to Your Health. Avoid second hand smoke Call the 24-hour hour crisis hotline for domestic abuse at Vaishali Younger PA-C Oct 19, 2017 13:39
[2017-10-19] MEDS ORDERED: NIFEdipine 30 MG SUSTAINED RELEASE TAB PO ONE (13:45)
[2017-10-19] MEDS ORDERED: CEFUROXIME AXETIL 250 MG TAB PO SCH (14:00)
[2017-10-19] MEDS: HEPARIN SODIUM - SQ 10,000 UNITS/ML VIAL SQ SCH (15:15)
[2017-10-19 16:26] VITALS: BP 175/72; PULSE 67; RESP 20; TEMP 98; O2SAT 92
[2017-10-19] MEDS ORDERED: INSULIN DETEMIR 100 UNITS/ML VIAL SQ SCH (21:00)
[2017-10-20] MEDS ORDERED: NIFEdipine 60 MG SUSTAINED RELEASE TAB PO SCH (09:00)
== END 2017-10-19 19:50 | disposition short-term general hospital (02) ==
LOC: NEDAMB 18:21 → NEDA 10-17 01:09 → NEDH 10-17 12:56 → NEPGCP 10-17 14:45
PROVIDERS: ADMIT Hospitalist; ATTEND Hospitalist
DX: N39.0 Urinary tract infection, site not specified (principal); B96.20 Unspecified Escherichia coli [E. coli] as the cause of diseases classified elsewhere; R41.82 Altered mental status, unspecified; E11.65 Type 2 diabetes mellitus with hyperglycemia; G93.40 Encephalopathy, unspecified; N17.9 Acute kidney failure, unspecified; I10 Essential (primary) hypertension; F43.25 Adjustment disorder with mixed disturbance of emotions and conduct; Z90.710 Acquired absence of both cervix and uterus; Z79.4 Long term (current) use of insulin
CPT/HCPCS: 70450; 80048; 80053; 81001; 82010; 82948; 83036; 85025; 87077; 87086; 87186; 96361; 96365; 96366; 96372; 96375; 97162; 99285; G0378; G8987; G8988; J0696; J1644; J1815; J2060; J7030; J7512